=== PATIENT | male | born 1955 | race Caucasian/White ===

== ENCOUNTER 2019-10-22 17:58 | Inpatient (IN) | payer MEDICAID, OTHER ==
[~2019-10-22] VITALS: Ht 167.6 cm; Wt 68.4 kg
[2019-10-22 19:21] LABS: Eosinophils # (auto) 0.1 10 ^3/uL (0-0.8); Eosinophils % (auto) 0.5 % (0.0-7.0); Monocytes # (auto) 0.5 10 ^3/uL (0-1.3); Neutrophils # (auto) 13.5 10 ^3/uL (1.6-8.6)
[2019-10-22 19:23] LABS: Basophils # (auto) 0.1 10 ^3/uL (0-0.2); Basophils % (auto) 0.4 % (0.0-2.0); Hematocrit 35.5 % (41.0-53.0); Hemoglobin 11.3 g/dL (13.5-17.5); Lymphocytes % (auto) 6.8 % (10.0-50.0); Mean Corpuscular Hemoglobin 27.8 pg (28.0-32.0); Mean Corpuscular Hgb Conc. 31.7 g/dL (32.0-36.0); Mean Corpuscular Volume 87.5 fL (80.0-100.0); Monocytes % (auto) 3.2 % (0.0-12.0); Neutrophils % (auto) 89.1 % (37.0-80.0); Platelet Count (auto) 514 10^3/uL (140-450); Red Blood Cells 4.06 10^6/uL (4.5-5.90); Red Cell Distribution Width 18.1 % (11.8-14.3); White Blood Cell 15.2 10^3/uL (4.4-10.8)
[2019-10-22 19:27] LABS: Urine Bacteria NONE SEEN /hpf (None Seen); Urine Blood Negative /uL (Negative); Urine Specific Gravity 1.018 (1.001-1.035); Urine WBC 3 /hpf (0 - 3)
[2019-10-22] MEDS ORDERED: SODIUM CHLORIDE 0.9% 1,000 ML IV ONE (19:30)
[2019-10-22] MEDS ORDERED: PANTOPRAZOLE 40 MG/10 ML VIAL INJ IV ONE (19:30)
[2019-10-22 19:41] LABS: Albumin 2.7 g/dL (3.4-5.0); Calcium 8.5 mg/dL (8.5-10.1); Potassium 3.3 mmol/L (3.5-5.1)
[2019-10-22 19:44] LABS: BUN/Creatinine Ratio 18.3; Bilirubin, Total 0.6 mg/dL (0.2-1.0); Total Protein 7.4 g/dL (6.4-8.2)
[2019-10-22] MEDS ORDERED: cefTRIAXone 1GM/50ML D5W 50 ML IV ONE (23:00)
[2019-10-23] MEDS ORDERED: ONDANSETRON HCL 4 MG/2 ML VIAL IV PRN (00:30)
[2019-10-23] MEDS ORDERED: MORPHINE SULF INJ 2 MG/ML SYRINGE 1ML IV PRN (00:30)
[2019-10-23] MEDS ORDERED: DEXTROSE (50%) 50ML SYRG IV PRN (00:30)
[2019-10-23] MEDS ORDERED: AZITHROMYCIN 500MG/ 250ML 250 ML IV SCH (00:30)
[2019-10-23] MEDS ORDERED: NITROGLYCERIN 0.4 MG SL TAB SL PRN (00:30)
[2019-10-23] MEDS ORDERED: levETIRAcetam 500 MG TAB PO SCH (00:52)
[2019-10-23] MEDS: SODIUM CHLORIDE 0.9% 1,000 ML IV SCH ×2 (00:55→12:46)
[2019-10-23 01:17] LABS: Hematocrit 34.1 % (41.0-53.0); Hemoglobin 10.6 g/dL (13.5-17.5)
[2019-10-23 01:24] LABS: Magnesium 2.2 mg/dL (1.6-2.6)
[2019-10-23] MEDS: DOXYCYCLINE 100MG/250ML 250 ML IV SCH ×2 (01:24→12:52)
[2019-10-23 01:33] LABS: CRP High Sensitivity 1.48 mg/dL (< 0.3)
[2019-10-23] MEDS ORDERED: levETIRAcetam 500 MG/5ML INJ IV ONE (01:41)
[2019-10-23 04:00] VITALS: BP 143/80
[2019-10-23] MEDS: ACCU-CHEK COMFORT CURVE STRIP VI SCH ×3 (06:00→17:55)
[2019-10-23] MEDS: InsuLIN REG 1unit/0.01ml Soln (100units/ml) SC SCH ×3 (06:00→17:55)
[2019-10-23 09:00] VITALS: BP 155/86
[2019-10-23] MEDS: cefTRIAXone 1GM/50ML D5W 50 ML IV SCH (09:56)
[2019-10-23] MEDS: ZINC SULFATE 220mg CAP or TAB PO SCH (09:57)
[2019-10-23] MEDS: ASCORBIC ACID 1,000 MG TAB PO SCH (09:58)
[2019-10-23] MEDS: CHOLECALCIFEROL (VITD3) 1,000IU=25mCg TAB PO SCH (09:58)
[2019-10-23] MEDS ORDERED: PANTOPRAZOLE 40 MG/10 ML VIAL INJ IV SCH (10:00)
[2019-10-23 13:00] VITALS: BP 136/75
[2019-10-23 16:18] LABS: INR 1.06 (0.9-1.15)
[2019-10-23 17:30] VITALS: BP 135/81
[2019-10-23 20:00] VITALS: BP 134/81
[2019-10-23] MEDS: PANTOPRAZOLE 40 MG/10 ML VIAL INJ IV SCH (21:51)
[2019-10-24] MEDS: ACCU-CHEK COMFORT CURVE STRIP VI SCH ×4 (00:13→17:59)
[2019-10-24] MEDS: DOXYCYCLINE 100MG/250ML 250 ML IV SCH ×2 (00:14→14:02)
[2019-10-24 00:39] VITALS: BP 123/76
[2019-10-24 04:00] VITALS: BP 143/68
[2019-10-24] MEDS: InsuLIN REG 1unit/0.01ml Soln (100units/ml) SC SCH ×4 (06:00→18:00)
[2019-10-24 07:20] LABS: Albumin 2.5 g/dL (3.4-5.0); BUN/Creatinine Ratio 17.9; Calcium 7.9 mg/dL (8.5-10.1)
[2019-10-24 07:22] LABS: Bilirubin, Total 0.5 mg/dL (0.2-1.0); Total Protein 6.7 g/dL (6.4-8.2)
[2019-10-24 07:40] LABS: Potassium 2.9 mmol/L (3.5-5.1)
[2019-10-24 08:00] VITALS: BP 133/80
[2019-10-24] MEDS ORDERED: NALOXONE HCL 0.4 MG/ML VIAL ONE (08:42)
[2019-10-24] MEDS ORDERED: FLUMAZENIL 0.1 MG/ML INJ 10ML MDV IV ONE (08:42)
[2019-10-24] MEDS ORDERED: fentaNYL CITRATE 100 MCG/2 ML VL ONE (08:43)
[2019-10-24] MEDS ORDERED: MIDAZOLAM HCL 5 MG/ML-1ML VIAL ONE (08:43)
[2019-10-24] MEDS ORDERED: diphenhdrAMINE HCL 50 MG/1 ML VL ONE (08:43)
[2019-10-24] MEDS ORDERED: SODIUM CHLORIDE LOCK 10 ML ONE (08:43)
[2019-10-24] MEDS ORDERED: LIDOCAINE VISCOUS 2% 15ML UD ONE (08:43)
[2019-10-24 08:56] LABS: Basophils # (auto) 0.1 10 ^3/uL (0-0.2); Basophils % (auto) 0.6 % (0.0-2.0); Eosinophils # (auto) 0.9 10 ^3/uL (0-0.8); Eosinophils % (auto) 10.9 % (0.0-7.0); Hematocrit 29.9 % (41.0-53.0); Hemoglobin 9.8 g/dL (13.5-17.5); Lymphocytes # (auto) 2.2 10 ^3/uL (0.4-5.4); Lymphocytes % (auto) 26.3 % (10.0-50.0); Mean Corpuscular Hemoglobin 28.5 pg (28.0-32.0); Mean Corpuscular Hgb Conc. 32.6 g/dL (32.0-36.0); Mean Corpuscular Volume 87.3 fL (80.0-100.0); Monocytes # (auto) 0.9 10 ^3/uL (0-1.3); Monocytes % (auto) 10.1 % (0.0-12.0); Neutrophils # (auto) 4.4 10 ^3/uL (1.6-8.6); Neutrophils % (auto) 52.1 % (37.0-80.0); Platelet Count (auto) 374 10^3/uL (140-450); Red Blood Cells 3.42 10^6/uL (4.5-5.90); Red Cell Distribution Width 17.9 % (11.8-14.3); White Blood Cell 8.5 10^3/uL (4.4-10.8)
[2019-10-24] MEDS: ZINC SULFATE 220mg CAP or TAB PO SCH (09:07)
[2019-10-24] MEDS: cefTRIAXone 1GM/50ML D5W 50 ML IV SCH (09:07)
[2019-10-24] MEDS: PANTOPRAZOLE 40 MG/10 ML VIAL INJ IV SCH (09:07)
[2019-10-24] MEDS: ASCORBIC ACID 1,000 MG TAB PO SCH (09:08)
[2019-10-24] MEDS: CHOLECALCIFEROL (VITD3) 1,000IU=25mCg TAB PO SCH (09:08)
[2019-10-24] MEDS: POTASSIUM CHL 20MEQ/100ML 100 ML IV SCH ×2 (10:22→13:36)
[2019-10-24] MEDS ORDERED: BENZOCAINE (DENTAL) 20 % SPRAY 60ML MT ONE (12:21)
[2019-10-24 17:05] VITALS: BP 120/71
[2019-10-24] MEDS ORDERED: POTASSIUM CHL 20MEQ/100ML 100 ML IV ONE (19:00)
[2019-10-24 21:41] VITALS: BP 135/80
[2019-10-25] MEDS: DOXYCYCLINE 100MG/250ML 250 ML IV SCH ×2 (00:14→12:50)
[2019-10-25] MEDS: ACCU-CHEK COMFORT CURVE STRIP VI SCH ×5 (00:14→23:39)
[2019-10-25 05:00] VITALS: BP 125/70
[2019-10-25] MEDS: InsuLIN REG 1unit/0.01ml Soln (100units/ml) SC SCH ×5 (05:49→23:39)
[2019-10-25 06:18] LABS: Basophils # (auto) 0 10 ^3/uL (0-0.2); Basophils % (auto) 0.4 % (0.0-2.0); Eosinophils # (auto) 0.6 10 ^3/uL (0-0.8); Eosinophils % (auto) 8.4 % (0.0-7.0); Hematocrit 29.5 % (41.0-53.0); Hemoglobin 9.5 g/dL (13.5-17.5); Lymphocytes # (auto) 2.4 10 ^3/uL (0.4-5.4); Lymphocytes % (auto) 30.9 % (10.0-50.0); Mean Corpuscular Hemoglobin 28.2 pg (28.0-32.0); Mean Corpuscular Hgb Conc. 32.2 g/dL (32.0-36.0); Mean Corpuscular Volume 87.8 fL (80.0-100.0); Monocytes # (auto) 0.8 10 ^3/uL (0-1.3); Neutrophils # (auto) 3.9 10 ^3/uL (1.6-8.6); Neutrophils % (auto) 50.3 % (37.0-80.0); Nucleated Red Blood Cells % 0.1 %; Platelet Count (auto) 361 10^3/uL (140-450); Red Blood Cells 3.35 10^6/uL (4.5-5.90); Red Cell Distribution Width 17.9 % (11.8-14.3); White Blood Cell 7.7 10^3/uL (4.4-10.8)
[2019-10-25 06:22] LABS: BUN/Creatinine Ratio 15.9; Potassium 3.3 mmol/L (3.5-5.1)
[2019-10-25] MEDS: cefTRIAXone 1GM/50ML D5W 50 ML IV SCH (08:40)
[2019-10-25 09:00] VITALS: BP 141/85
[2019-10-25 13:00] VITALS: BP 146/80
[2019-10-25] MEDS ORDERED: MAGNESIUM SULFATE 1GM/100ML 100 ML IV SCH (13:00)
[2019-10-25] MEDS: POTASSIUM CHL 20MEQ/100ML 100 ML IV SCH ×2 (14:55→17:13)
[2019-10-25 17:00] VITALS: BP 131/77
[2019-10-25 22:00] VITALS: BP 128/77
[2019-10-26] VITALS (7 sets, daily range): BP systolic 110–145; BP diastolic 66–92
[2019-10-26] MEDS: DOXYCYCLINE 100MG/250ML 250 ML IV SCH ×2 (00:45→13:33)
[2019-10-26] MEDS: ACCU-CHEK COMFORT CURVE STRIP VI SCH ×3 (05:56→17:27)
[2019-10-26] MEDS: InsuLIN REG 1unit/0.01ml Soln (100units/ml) SC SCH ×3 (06:25→17:27)
[2019-10-26] MEDS: cefTRIAXone 1GM/50ML D5W 50 ML IV SCH (10:01)
[2019-10-26] MEDS: ENOXAPARIN SOD 30 MG/0.3 ML SYRINGE SC SCH (10:02)
[2019-10-27] MEDS: DOXYCYCLINE 100MG/250ML 250 ML IV SCH ×2 (00:14→14:01)
[2019-10-27] MEDS: ACCU-CHEK COMFORT CURVE STRIP VI SCH ×5 (00:14→23:59)
[2019-10-27] MEDS: InsuLIN REG 1unit/0.01ml Soln (100units/ml) SC SCH ×5 (00:15→23:59)
[2019-10-27 05:00] VITALS: BP 149/97
[2019-10-27 06:30] LABS: Basophils # (auto) 0 10 ^3/uL (0-0.2); Basophils % (auto) 0.5 % (0.0-2.0); Eosinophils # (auto) 0.7 10 ^3/uL (0-0.8); Eosinophils % (auto) 8.4 % (0.0-7.0); Hematocrit 29.7 % (41.0-53.0); Hemoglobin 9.7 g/dL (13.5-17.5); Lymphocytes # (auto) 2.4 10 ^3/uL (0.4-5.4); Lymphocytes % (auto) 30.6 % (10.0-50.0); Mean Corpuscular Hemoglobin 28.6 pg (28.0-32.0); Mean Corpuscular Hgb Conc. 32.7 g/dL (32.0-36.0); Mean Corpuscular Volume 87.2 fL (80.0-100.0); Monocytes # (auto) 0.5 10 ^3/uL (0-1.3); Monocytes % (auto) 6.9 % (0.0-12.0); Neutrophils # (auto) 4.3 10 ^3/uL (1.6-8.6); Neutrophils % (auto) 53.6 % (37.0-80.0); Platelet Count (auto) 347 10^3/uL (140-450); Red Blood Cells 3.41 10^6/uL (4.5-5.90); Red Cell Distribution Width 17.8 % (11.8-14.3)
[2019-10-27 06:50] LABS: Albumin 2.6 g/dL (3.4-5.0); Calcium 8.3 mg/dL (8.5-10.1); Potassium 3.6 mmol/L (3.5-5.1)
[2019-10-27 06:53] LABS: BUN/Creatinine Ratio 13.7; Bilirubin, Total 0.6 mg/dL (0.2-1.0); Total Protein 6.7 g/dL (6.4-8.2)
[2019-10-27 09:00] VITALS: BP 128/80
[2019-10-27] MEDS: cefTRIAXone 1GM/50ML D5W 50 ML IV SCH (09:06)
[2019-10-27] MEDS: ENOXAPARIN SOD 30 MG/0.3 ML SYRINGE SC SCH (10:33)
[2019-10-27] MEDS ORDERED: FUROSEMIDE 40 MG/4 ML VIAL IV ONE (11:00)
[2019-10-27 12:00] VITALS: BP 125/74
[2019-10-27] MEDS ORDERED: IOHEXOL 350 MG/ML 100ML IJ ONE (13:30)
[2019-10-27] MEDS ORDERED: FUROSEMIDE 20 MG/2 ML VIAL IV ONE (13:30)
[2019-10-27 17:00] VITALS: BP 139/92
[2019-10-27] MEDS ORDERED: POTASSIUM EFFERVESENT TAB 25 MEQ PO ONE (20:30)
[2019-10-27 22:00] VITALS: BP 133/88
[2019-10-28] MEDS: DOXYCYCLINE 100MG/250ML 250 ML IV SCH ×2 (00:11→12:26)
[2019-10-28 05:00] VITALS: BP 128/79
[2019-10-28] MEDS: ACCU-CHEK COMFORT CURVE STRIP VI SCH ×3 (06:02→18:12)
[2019-10-28] MEDS: InsuLIN REG 1unit/0.01ml Soln (100units/ml) SC SCH ×3 (06:17→18:00)
[2019-10-28] MEDS: cefTRIAXone 1GM/50ML D5W 50 ML IV SCH (08:46)
[2019-10-28 09:00] VITALS: BP 112/56
[2019-10-28] MEDS: ENOXAPARIN SOD 40 MG/0.4 ML SYRINGE SC SCH (09:48)
[2019-10-28 13:00] VITALS: BP 130/65
[2019-10-28 17:00] VITALS: BP 112/73
[2019-10-28 22:00] VITALS: BP 136/84
[2019-10-29] MEDS: DOXYCYCLINE 100MG/250ML 250 ML IV SCH ×2 (00:54→12:45)
[2019-10-29] MEDS: InsuLIN REG 1unit/0.01ml Soln (100units/ml) SC SCH ×4 (00:56→18:00)
[2019-10-29] MEDS: ACCU-CHEK COMFORT CURVE STRIP VI SCH ×4 (00:56→18:01)
[2019-10-29 08:45] VITALS: BP 144/64
[2019-10-29] MEDS: cefTRIAXone 1GM/50ML D5W 50 ML IV SCH (10:14)
[2019-10-29] MEDS: ENOXAPARIN SOD 40 MG/0.4 ML SYRINGE SC SCH (10:15)
[2019-10-29 17:37] VITALS: BP 126/95
== END 2019-10-29 18:00 | disposition other institution (70) | DRG 253 ==
LOC: EDBD 17:58 → ER 17:58 → TELE 17:59 → TELE-EAST 10-23 03:10 → TELE-CENTR 10-24 13:42
PROVIDERS: ADMIT Nurse Practitioner; ATTEND Internal Medicine Nephrology
PROC: 0DJ08ZZ Inspection of Upper Intestinal Tract, Via Natural or Artificial Opening Endoscopic (ICD-10-PCS; principal; 2019-10-24 12:40)
DX: K92.0 Hematemesis (principal); J15.4 Pneumonia due to other streptococci; J84.9 Interstitial pulmonary disease, unspecified; I50.32 Chronic diastolic (congestive) heart failure; R56.9 Unspecified convulsions; E11.65 Type 2 diabetes mellitus with hyperglycemia; D62 Acute posthemorrhagic anemia; R65.10 Systemic inflammatory response syndrome (SIRS) of non-infectious origin without acute organ dysfunction; D72.829 Elevated white blood cell count, unspecified; E87.6 Hypokalemia; Z74.01 Bed confinement status; Z03.818 Encounter for observation for suspected exposure to other biological agents ruled out; Z86.19 Personal history of other infectious and parasitic diseases
CPT/HCPCS: 36415; 43235; 71045; 71250; 71275; 74176; 80048; 80053; 81001; 82140; 82270; 82728; 82962; 83036; 83605; 83615; 83735; 83880; 84443; 85014; 85018; 85025; 85379; 85610; 86141; 86850; 86900; 86901; 87040; 87081; 87804; 87880; 93005; 93970; 96361; 96365; 96375; C9113; G0378; J0696; J1815; J2250; J3480; J3490; J7060